=== PATIENT | male | born 1990 | race Caucasian/White ===

== ENCOUNTER 2020-10-17 19:59 | Emergency (ER) | payer SELFPAY ==
--- NOTE | ~2020-10-17 | CT_ITS ---
EXAMINATION: CTA chest abdomen pelvis DATE: 10/17/2020 21:12 INDICATION: TECHNIQUE: Computed tomographic angiography (CTA) of the chest, abdomen and pelvis was performed with 100 cc of Omnipaque-350 intravenous contrast. Additional 3D reconstructions utilizing rotating maxim um intensity projection (MIP) were performed. Automated exposure control and iterative reconstruction technique were employed. The dose-length product was 1016.65 mGy-cm. COMPARISON: None FINDINGS: CHEST: Respiratory motion. Lungs are clear with no focal airspace opacities, pulmonary edema, pleural effusi on or pneumothorax. Heart size is normal. No pericardial effusion. Thoracic aorta is normal in calibe r with no dissection. Not performed as a dedicated pulmonary embolism protocol the contrast opacifica tion is suggestion to demonstrate no pulmonary embolism. No pathologically enlarged thoracic lymphade nopathy. Mild thoracic dextrocurvature. Abdomen and pelvis: Liver, gallbladder, spleen, pancreas, bilateral adrenal glands and kidneys are normal. No evident uro lithiasis. Bowels including the appendix are normal. Bladder is normal. Abdominal aorta is normal in caliber with no dissection. No free intraperitoneal gas or fluid. No pathologically enlarged abdomina l or pelvic lymphadenopathy. Minimal lumbar levocurvature. IMPRESSION: 1. Normal aorta with no acute cardiopulmonary disease or acute intra-abdominal/pelvic process. Reviewed, dictated and finalized at location A. TIME PILOT IMPRESSION: 1. Normal aorta with no acute cardiopulmonary disease or acute intra-abdominal/ pelvic process.
[2020-10-17 20:02] VITALS: BP 191/112; PULSE 108; RESP 16; TEMP 36.8; O2SAT 100
--- NOTE | 2020-10-17 20:08 | ED.GENADULT ---
HPI - General Adult General Chief complaint: Unspecified Stated complaint: right flank swelling/burning, cp Time Seen by Provider: 10/17/20 20:08 History of Present Illness HPI narrative: 30 yo male presents to the ED with multiple complaints. He reports that he has been having intermittent symptoms for the past 2 years. the first symtpom is intermittent left sided chest pain and SOB. He says that this usually lasts a few days. He also reports that he gets burning pain in his right flank. When this happens it gets swollen, red and hot to the touch. He says that it started a few hours ago and is improving. He reports that he does have anxiety, but these are not his anxiety symptoms. Related Data Allergies Allergy/AdvReac Type Severity Reaction Status Date / Time No Known Drug Allergies Allergy Unknown Verified 08/14/16 18:34 Review of Systems Review of Systems: All systems reviewed & are unremarkable except as noted in HPI and below Constitutional: Constitutional: Denies fever(s) Cardiovascular: Cardiovascular: Reports chest pain Respiratory: Respiratory: Reports dyspnea Gastrointestinal: Gastrointestinal: Denies diarrhea, Denies nausea and Denies vomiting Genitourinary: Genitourinary: Denies hematuria, Denies dysuria and Reports flank pain Neurologic: Reports system reviewed and no additional complaints, except as documented Psychiatric: Psychiatric: Reports anxiety [facility] Past Medical History Medical History (Updated 10/18/20 @ 04:11 by Eyad White MD) Anxiety Family History Family History (Updated 05/01/16 @ 23:19 by DOCTOR UNKNOWN) Mother Family history of diabetes mellitus in first degree relative Other Cerebrovascular accident Family history of cardiovascular disease Social History Social History Alcohol intake: current Exam Const: General: healthy appearing, no acute distress and alert Orientation/consciousness: patient oriented x3 HENMT: Head: normal to inspection Neck: Neck: normal visual inspection and no lymphadenopathy Chest: Chest palpation & inspection: no tenderness Resp: Effort & Inspection: normal respiratory effort Auscultation: clear to auscultation bilaterally, no rales, no rhonchi and no wheezes Cardio: Jugular venous distension: no JVD Rate: regular rate Rhythm: regular rhythm Heart sounds: no murmurs GI: Inspection: non-distended GI Palp: Yes Soft to palpation and No Tenderness to palpation present (GI) Back/Spine/Pelvis: Back: no CVA tenderness Skin: General skin exam: normal color Lesions: no lesions Rashes: no rashes Wounds: no wounds Neuro: General: patient oriented x3 and moves all extremities Speech: normal speech Extrem: General: no edema Psych: Appearance: well kempt Affect: Anxious affect present Course Vital Signs Vital signs: Vital Signs Temperature 36.8 C 10/17/20 20:02 Pulse Rate 108 H 10/17/20 20:02 Respiratory Rate 16 10/17/20 20:02 Blood Pressure 191/112 H 10/17/20 20:02 Pulse Oximetry 100 10/17/20 20:02 Temperature 36.6 C 10/17/20 22:57 Pulse Rate 101 H 10/17/20 22:57 Respiratory Rate 16 10/17/20 22:57 Blood Pressure 131/97 H 10/17/20 22:57 Pulse Oximetry 99 10/17/20 22:57 Medical Decision Making Vital Signs Vital Signs: Vital Signs Temperature 36.8 C 10/17/20 20:02 Pulse Rate 108 H 10/17/20 20:02 Respiratory Rate 16 10/17/20 20:02 Blood Pressure 191/112 H 10/17/20 20:02 Pulse Oximetry 100 10/17/20 20:02 Temperature 36.6 C 10/17/20 22:57 Pulse Rate 101 H 10/17/20 22:57 Respiratory Rate 16 10/17/20 22:57 Blood Pressure 131/97 H 10/17/20 22:57 Pulse Oximetry 99 10/17/20 22:57 Lab Data Result diagrams: 10/17/20 20:24 10/17/20 20:24 Labs: Lab Results 10/17/20 10/17/20 10/17/20 Range/Units 20:24 20:24 20:24 WBC 12.6 H (4.5-10.0) K/mm3 RBC 5.63 (4.6-6.20) M/mm3 Hgb 16.8 (14.0-18.0) g/d
--- NOTE | 2020-10-17 20:11 | ECG_ITS ---
Measurements Intervals [place] Rate: 116 P: 59 AR: 159 QRS: 40 QRSD: 80 T: 36 QT: 299 QTc: 415 Interpretive Statements SINUS TACHYCARDIA BASELINE ARTIFACT- I, II, AVR, AVL, AVF, V2-V6 ABNORMAL ECG Electronically Signed On 10-24-2020 12:22:16 [employer] ENGINE[employer] by Yaniv Turner D.O.
[2020-10-17 20:31] LABS: Basophils Absolute Auto 0.1 K/mm3 (0.0-0.1); Basophils Percent Auto 0.8 % (0.2-1.2); Eosinophils Absolute Auto 0.5 K/mm3 (0-0.3); Hematocrit 48.3 % (42.0-52.0); Hemoglobin 16.8 g/dL (14.0-18.0); Immature Granulocyte Absolute 0.04 K/mm3 (0.00-0.031); Immature Granulocyte Percent A 0.3 % (0-0.5); Lymphocytes Absolute Auto 2.18 K/mm3 (0.9-3.2); Lymphocytes Percent Auto 17.3 % (18.3-44.2); Mean Corpuscular HGB Conc 34.8 g/dl (32-36); Mean Corpuscular Hemoglobin 29.8 pg (26-34); Mean Corpuscular Volume 85.8 fl (80-100); Mean Platelet Volume 9.4 fl (7.4-10.4); Monocytes Absolute Auto 1.7 K/mm3 (0.1-0.6); Monocytes Percent Auto 13.3 % (2.6-8.5); Neutrophils Absolute Auto 8.1 K/mm3 (1.3-6.7); Neutrophils Percent Auto 64.3 % (45.5-73.1); Platelet Count Result 284 k/mm3 (150-375); Red Blood Count 5.63 M/mm3 (4.6-6.20); Red Cell Distribution Width 12.9 % (11.5-14.5); White Blood Count 12.6 K/mm3 (4.5-10.0)
[2020-10-17 20:41] LABS: Partial Thromboplastin Time 27.3 SECONDS (22.3-36.8); Prothrombin Time 13.3 Seconds (11.1-14.7)
[2020-10-17 20:48] LABS: Alanine Aminotransferase 45 U/L (4-50); Albumin Level 4.9 g/dL (3.5-5.1); Alkaline Phosphatase 66 U/L (38-126); Anion Gap 6 mmol/L (8-16); Aspartate Amino Transferase 55 U/L (17-59); Bilirubin,Total 0.7 mg/dL (0.2-1.3); Blood Urea Nitrogen 14 mg/dL (9-20); Calcium 9.7 mg/dL (8.4-10.2); Carbon Dioxide 33 mmol/L (22-30); Chloride 100 mmol/L (98-107); Estimated CRCL calculation 138 ml/min; Estimated Glomerular Filt Rate > 60; Glucose 91 mg/dL (75-110); Potassium 4.4 mmol/L (3.4-5.0); Sodium 139 mmol/L (137-145)
[2020-10-17 20:59] LABS: Troponin I < 0.012 ng/mL (0.000-0.034)
[2020-10-17] MEDS: SODIUM CHLORIDE 0.9% IV 1,000 ML 999 ML IV CONT (21:25)
[2020-10-17 21:51] LABS: Add Urine Microscopic? YES; Appearance Urine Clear (Clear); Bilirubin Urine Negative (Negative); Blood Urine 1+ (Negative); Color Urine Yellow (Yellow); Glucose Urine UA Negative (Negative); Ketones Urine 1+ mg/dL (Negative); Leukocyte Esterase Ur Negative LEU/UL (Negative); Mucus Urine Rare /lpf; Nitrate Urine Negative (Negative); Protein Urine Negative (Negative); RBC Urine 0-2 /hpf (0-2); Squamous Epithelial Cell Urine Rare /hpf (Few); Urobilinogen Urine Negative mg/dL (<2.0); WBC Urine 0-3 /hpf
[2020-10-17 21:53] LABS: Specific Grav Ur 1.034 (1.001-1.035)
[2020-10-17 22:30] VITALS: BP 128/97; PULSE 108; RESP 20; O2SAT 99
[2020-10-17 22:57] VITALS: BP 131/97; PULSE 101; RESP 16; TEMP 36.6; O2SAT 99
== END 2020-10-17 22:58 | disposition home or self-care (01) ==
PROVIDERS: Emergency Provider Emergency Medicine
DX: M54.5 Low back pain (principal); F41.9 Anxiety disorder, unspecified; I10 Essential (primary) hypertension
CPT/HCPCS: 36415; 71275; 74174; 80053; 81001; 84484; 85025; 85610; 85730; 93005; 96360; 99284; J7030; Q9967